=== PATIENT | male | born 1965 | race Caucasian/White ===

== ENCOUNTER 2018-03-04 15:51 | Emergency (ER) | payer MEDICAID ==
[~2018-03-04] VITALS: Ht 177.8 cm; Wt 86.4 kg
[~2018-03-04 15:51] MED LIST: COL100C PO; LACT1CAP26 PO; PER10325T PO
[2018-03-04 15:57] VITALS: BP 126/87
[2018-03-04] MEDS ORDERED: PENI500T2 PO (17:17)
[2018-03-04] MEDS ORDERED: HYDROcodone/acetaminophen 10/325mg tab PO ONE (17:20)
== END 2018-03-04 17:29 | disposition home or self-care (01) ==
LOC: ER 15:53
DX: K02.9 Dental caries, unspecified (principal); Z91.018 Allergy to other foods; Z79.899 Other long term (current) drug therapy; Z59.0 Homelessness; Z56.0 Unemployment, unspecified; Z86.19 Personal history of other infectious and parasitic diseases
CPT/HCPCS: 99283

== ENCOUNTER 2018-03-05 11:27 | Emergency (ER) | payer MEDICAID ==
[~2018-03-05] VITALS: Ht 177.8 cm; Wt 70.0 kg
[~2018-03-05 11:27] MED LIST changes: +PENI500T2 PO
[2018-03-05 11:35] VITALS: BP 109/73
== END 2018-03-05 14:29 | disposition left against medical advice (07) ==
LOC: ER 11:28
DX: T78.40XA Allergy, unspecified, initial encounter (principal); Z53.21 Procedure and treatment not carried out due to patient leaving prior to being seen by health care provider; Y92.9 Unspecified place or not applicable
CPT/HCPCS: 93005; 99281

== ENCOUNTER 2018-10-29 20:15 | Emergency (ER) | payer MEDICAID ==
[~2018-10-29] VITALS: Ht 177.8 cm; Wt 85.0 kg
[~2018-10-29 20:15] MED LIST changes: -PENI500T2 PO
[2018-10-29] MEDS ORDERED: meperidine/PF 50mg/ml syringe IV ONE (20:25)
[2018-10-29] MEDS ORDERED: ketorolac tromethamine 15mg/ml inj. IV ONE (20:25)
[2018-10-29] MEDS ORDERED: cyclobenzaprine 10mg tablet PO ONE (20:40)
[2018-10-29 20:49] LABS: ALANINE AMINOTRANSFERASE 119 U/L (12-78); ALBUMIN/GLOBULIN RATIO 1.1 (1.1-1.5); ALKALINE PHOSPHATASE 99 IU/L (46-116); ANION GAP 11 (8-16); ASPARTATE AMINO TRANSFERASE 49 U/L (10-37); BILIRUBIN,TOTAL 0.6 MG/DL (0.1-1.0); BLOOD UREA NITROGEN 11 MG/DL (7-18); CALCIUM 8.8 MG/DL (8.5-10.1); CHLORIDE 108 MMOL/L (99-107); GLUCOSE 113 MG/DL (70-104); SODIUM 141 MMOL/L (135-145); TOTAL CARBON DIOXIDE 22.1 MMOL/L (24-32); TOTAL PROTEIN 7.7 G/DL (6.4-8.2); eGFR 71 ML/MIN
[2018-10-29 20:50] LABS: BASOPHILS % (AUTO) 0.5 % (0-1); EOSINOPHILS # (AUTO) 0.4 X10'3 (0-0.9); EOSINOPHILS % (AUTO) 4.4 % (0-6); HEMATOCRIT 43.1 % (42.0-52.0); HEMOGLOBIN 14.9 g/dl (14.0-17.9); LYMPHOCYTES % (AUTO) 32.2 % (21-51); MEAN CORPUSCULAR HEMOGLOBIN 31.3 PG (27.0-31.0); MEAN CORPUSCULAR HGB CONC 34.6 g/dL (33.0-36.5); MEAN CORPUSCULAR VOLUME 90.5 FL (78-98); MEAN PLATELET VOLUME 9.3 FL (7.4-10.4); MONOCYTES # (AUTO) 0.7 X10'3 (0-0.9); MONOCYTES % (AUTO) 7.5 % (2-12); NEUTROPHILS # (AUTO) 5.1 X10'3 (1.8-7.7); NEUTROPHILS % (AUTO) 55.4 % (42-75); PLATELET COUNT 207 X10'3 (140-440); RED BLOOD COUNT 4.77 X10'6 (4.70-6.10); RED CELL DISTRIBUTION WIDTH 12.5 % (11.5-14.5); WHITE BLOOD COUNT 9.2 X10'3 (4.5-11.0)
[2018-10-29 20:51] LABS: PARTIAL THROMBOPLASTIN TIME 28 SECONDS (22-32)
[2018-10-29 20:52] LABS: AMYLASE 51 U/L (25-115); CREATINE KINASE 279 U/L (39-308); LIPASE 68 U/L (73-393); TROPONIN I < 0.04 NG/ML (0.0-0.05)
[2018-10-29] MEDS ORDERED: HYDROcodone/acetaminophen 10/325mg tab PO ONE (21:40)
[2018-10-29] MEDS ORDERED: CYCL-1 PO (21:41)
[2018-10-29] MEDS ORDERED: HYDR-4353 PO (21:41)
[2018-10-29] MEDS ORDERED: NAPR-56 PO (21:41)
[2018-10-29 21:56] VITALS: BP 111/70
== END 2018-10-29 22:49 | disposition home or self-care (01) ==
LOC: ER 20:15
DX: R07.89 Other chest pain (principal); R06.02 Shortness of breath; R61 Generalized hyperhidrosis; I10 Essential (primary) hypertension; F17.200 Nicotine dependence, unspecified, uncomplicated; F10.99 Alcohol use, unspecified with unspecified alcohol-induced disorder; Z86.19 Personal history of other infectious and parasitic diseases; Z98.890 Other specified postprocedural states; Z56.0 Unemployment, unspecified; Z59.0 Homelessness; Z88.0 Allergy status to penicillin; Z91.018 Allergy to other foods; Z79.899 Other long term (current) drug therapy; Y90.9 Presence of alcohol in blood, level not specified
CPT/HCPCS: 36415; 71045; 80053; 82150; 82550; 83690; 84484; 85025; 85610; 85730; 93005; 96374; 96375; 99284; J1885; J2175

== ENCOUNTER 2019-11-10 16:05 | Emergency (ER) | payer MEDICAID ==
[~2019-11-10] VITALS: Ht 177.8 cm; Wt 91.8 kg
[~2019-11-10 16:05] MED LIST changes: +CYCL-1 PO
[2019-11-10 16:34] LABS: BASOPHILS # (AUTO) 0.1 X10'3 (0-0.2); BASOPHILS % (AUTO) 0.9 % (0-1); EOSINOPHILS # (AUTO) 0.2 X10'3 (0-0.9); EOSINOPHILS % (AUTO) 2.7 % (0-6); HEMATOCRIT 46.1 % (42.0-52.0); HEMOGLOBIN 15.8 g/dl (14.0-17.9); LYMPHOCYTES # (AUTO) 1.7 X10'3 (1.1-4.8); LYMPHOCYTES % (AUTO) 19.4 % (21-51); MEAN CORPUSCULAR HGB CONC 34.3 g/dL (33.0-36.5); MEAN CORPUSCULAR VOLUME 93.5 FL (78-98); MONOCYTES # (AUTO) 0.9 X10'3 (0-0.9); MONOCYTES % (AUTO) 9.7 % (2-12); NEUTROPHILS % (AUTO) 67.3 % (42-75); PLATELET COUNT 217 X10'3 (140-440); RED BLOOD COUNT 4.92 X10'6 (4.70-6.10); RED CELL DISTRIBUTION WIDTH 12.6 % (11.5-14.5); WHITE BLOOD COUNT 8.9 X10'3 (4.5-11.0)
[2019-11-10 16:54] LABS: ALANINE AMINOTRANSFERASE 375 U/L (12-78); ALBUMIN 3.7 G/DL (3.4-5.0); ALBUMIN/GLOBULIN RATIO 0.8 (1.1-1.5); ALKALINE PHOSPHATASE 117 IU/L (46-116); ANION GAP 8 (8-16); ASPARTATE AMINO TRANSFERASE 157 U/L (10-37); BILIRUBIN,TOTAL 0.3 MG/DL (0.1-1.0); BLOOD UREA NITROGEN 13 MG/DL (7-18); BUN/CREATININE RATIO 13.4 (5.4-32.0); CALCIUM 9.3 MG/DL (8.5-10.1); CHLORIDE 102 MMOL/L (99-107); CREATININE 0.97 MG/DL (0.60-1.10); GLUCOSE 187 MG/DL (70-104); POTASSIUM 4.1 MMOL/L (3.5-5.1); SODIUM 137 MMOL/L (135-145); TOTAL CARBON DIOXIDE 27.1 MMOL/L (24-32); TOTAL PROTEIN 8.2 G/DL (6.4-8.2); eGFR 81 ML/MIN
[2019-11-10] MEDS ORDERED: normal saline 1000ml 1,000 ML IV ONE (17:30)
[2019-11-10] MEDS ORDERED: ondansetron/PF 4mg/2ml inj IV ONE (17:30)
[2019-11-10] MEDS ORDERED: meclizine 12.5mg tablet PO ONE (17:45)
[2019-11-10] MEDS ORDERED: MECL-159 PO (18:45)
[2019-11-10] MEDS ORDERED: ONDA4TAB6 PO (18:45)
[2019-11-10 19:00] VITALS: BP 149/93
== END 2019-11-10 19:03 | disposition home or self-care (01) ==
LOC: ER 16:05
DX: R42 Dizziness and giddiness (principal); R11.2 Nausea with vomiting, unspecified; Z72.89 Other problems related to lifestyle; Z56.0 Unemployment, unspecified; Z59.0 Homelessness; Z91.018 Allergy to other foods; Z79.899 Other long term (current) drug therapy
CPT/HCPCS: 36415; 71045; 80053; 83880; 84484; 85025; 93005; 96374; 99285; J2405; J7030; J8597

== ENCOUNTER → 2020-06-04 | Emergency (ER) | payer MEDICAID ==
[~2020-06-04] VITALS: Ht 177.8 cm; Wt 86.7 kg
[~2020-06-04] MED LIST changes: +ALBU8HFA PO; +CLON0.3T PO; +HYDR-3972 PO; +MECL-159 PO; +OMEP-50 PO; +ONDA4TAB6 PO
[2020-06-04 15:56] VITALS: BP 156/101
== END | disposition left against medical advice (07) ==
LOC: ER 15:47
DX: R10.9 Unspecified abdominal pain (principal); R11.10 Vomiting, unspecified; Z53.21 Procedure and treatment not carried out due to patient leaving prior to being seen by health care provider

== ENCOUNTER 2020-06-07 18:37 | Inpatient (IN) | payer MEDICAID ==
[~2020-06-07] VITALS: Ht 177.8 cm; Wt 90.9 kg
[~2020-06-07 18:37] MED LIST changes: -ALBU8HFA PO; -CLON0.3T PO; -HYDR-3972 PO; -OMEP-50 PO
[2020-06-07 20:07] LABS: BASOPHILS % (AUTO) 0.3 % (0-1); EOSINOPHILS % (AUTO) 0.2 % (0-6); HEMATOCRIT 45.3 % (42.0-52.0); HEMOGLOBIN 15.3 g/dl (14.0-17.9); LYMPHOCYTES # (AUTO) 1.2 X10'3 (1.1-4.8); LYMPHOCYTES % (AUTO) 10.7 % (21-51); MEAN CORPUSCULAR HEMOGLOBIN 31.6 PG (27.0-31.0); MEAN CORPUSCULAR HGB CONC 33.8 g/dL (33.0-36.5); MEAN CORPUSCULAR VOLUME 93.5 FL (78-98); MEAN PLATELET VOLUME 10.4 FL (7.4-10.4); MONOCYTES % (AUTO) 9.1 % (2-12); NEUTROPHILS # (AUTO) 8.8 X10'3 (1.8-7.7); NEUTROPHILS % (AUTO) 79.7 % (42-75); PLATELET COUNT 151 X10'3 (140-440); RED BLOOD COUNT 4.85 X10'6 (4.70-6.10); WHITE BLOOD COUNT 11.1 X10'3 (4.5-11.0)
[2020-06-07 20:13] LABS: ALANINE AMINOTRANSFERASE 229 U/L (12-78); ALBUMIN 3.3 G/DL (3.4-5.0); ALBUMIN/GLOBULIN RATIO 0.7 (1.1-1.5); ALKALINE PHOSPHATASE 177 IU/L (46-116); ANION GAP 10 (8-16); ASPARTATE AMINO TRANSFERASE 127 U/L (10-37); BILIRUBIN,TOTAL 0.8 MG/DL (0.1-1.0); BLOOD UREA NITROGEN 26 MG/DL (7-18); BUN/CREATININE RATIO 16.6 (5.4-32.0); CALCIUM 9.8 MG/DL (8.5-10.1); CHLORIDE 89 MMOL/L (99-107); CREATININE 1.57 MG/DL (0.60-1.10); LIPASE 135 U/L (73-393); POTASSIUM 4.8 MMOL/L (3.5-5.1); SODIUM 126 MMOL/L (135-145); TOTAL CARBON DIOXIDE 27.1 MMOL/L (24-32); TOTAL PROTEIN 8.3 G/DL (6.4-8.2); eGFR 47 ML/MIN
[2020-06-07 20:41] LABS: GLUCOSE 772 MG/DL (70-104)
[2020-06-07] MEDS ORDERED: normal saline 1000ML IV soln IVB ONE ×2 (22:05→23:10)
[2020-06-07] MEDS ORDERED: insulin regular, human U-100 3ml vial - multi-dose IV ONE (22:15)
[2020-06-07 22:26] LABS: CLARITY,URINE CLEAR (Clear); COLOR,URINE STRAW (Yellow); GLUCOSE, URINE >=1000 mg/dl (Neg); KETONES,URINE TRACE mg/dl (Neg); LEUKOCYTE ESTERASE ,URINE NEGATIVE (Neg); NITRITES, URINE NEGATIVE (Neg); OCCULT BLOOD,URINE TRACE-INTACT (Neg); PROTEIN,URINE NEGATIVE (Neg); UROBILINOGEN,URINE 0.2 E.U/dL (0.2-1.0)
[2020-06-07] MEDS ORDERED: insulin regular, human 10 units/0.1 ml syringe IV ONE ×2 (22:30→23:15)
[2020-06-07] MEDS ORDERED: morphine 4 MG/ML inj SYRINge IV ONE (22:30)
[2020-06-07 22:32] LABS: UA COLLECTION TYPE VOIDED
[2020-06-07 22:33] LABS: BACTERIA,URINE 1+ /HPF (Neg); RBC,URINE 0-2 /HPF (0-2); SQUAMOUS EPITHELIAL CELL,UR NONE SEEN /LPF (FEW)
[2020-06-07 22:34] LABS: WBC CLUMPS,URINE FEW /HPF (NEGATIVE)
[2020-06-07] MEDS ORDERED: iohexol 300mg/ml 100ml inj. ONE (22:45)
[2020-06-07 23:00] LABS: MAGNESIUM 1.8 MG/DL (1.5-2.4); PHOSPHORUS 4.2 MG/DL (2.3-4.5)
--- NOTE | 2020-06-08 01:07 | NUR ---
, ELI, AT BEDSIDE, . PT UP TO BR TO VOID AND POSSIBLEY TO HAVE BM. REPORTS HE IS PASSING GAS. STATES HE TOOK MANY BOWL MEDS WTH NO RELIEF. FEELS DISTENDED. CURRENT VSS.
[2020-06-08] MEDS ORDERED: HYDR-3972 PO (01:21)
[2020-06-08] MEDS ORDERED: CLON0.3T PO (01:21)
[2020-06-08] MEDS ORDERED: OMEP-50 PO (01:21)
[2020-06-08] MEDS ORDERED: ALBU8HFA PO (01:22)
[2020-06-08] MEDS ORDERED: CefTRIAXone/D5W-Rocephin 1gm 50 ML IV ONE (04:45)
[2020-06-08] MEDS ORDERED: magnesium hydroxide 30ml (MOM) UD suspension PO PRN (05:20)
[2020-06-08] MEDS ORDERED: acetaminophen 325mg tablet PO PRN (05:20)
[2020-06-08] MEDS ORDERED: ondansetron/PF 4mg/2ml inj IV PRN (05:20)
[2020-06-08] MEDS ORDERED: mag hydrox/Alum hydrox/simeth 30ml oral suspension PO PRN (05:20)
[2020-06-08] MEDS ORDERED: potassium Cl 20 mEq SR tablet PO PRN ×2 (05:20)
[2020-06-08] MEDS ORDERED: potassium Cl 40MEQ/1/2NS 520ml 520 ML IV PRN ×2 (05:20)
[2020-06-08] MEDS ORDERED: dextrose 50%-water 50ml dispensing syringe IV PRN ×2 (05:25)
[2020-06-08] MEDS ORDERED: insulin glargine (Lantus) pen - multi-dose SQ ONE (05:25)
[2020-06-08] MEDS ORDERED: glucagon, human recombinant 1mg kit SUBCUT PRN (05:25)
[2020-06-08] MEDS ORDERED: dextrose ORAL solution 15 GM/59 ML bottle PO PRN ×2 (05:25)
[2020-06-08] MEDS ORDERED: MESSAGE TO PHARMACY PO ONE (05:25)
[2020-06-08] MEDS: normal saline 1000ml 1,000 ML IV SCH ×4 (05:27→19:05)
[2020-06-08] MEDS ORDERED: albuterol 2.5 MG/3 ML nebule NEB PRN (05:35)
[2020-06-08 05:51] LABS: HEMOGLOBIN A1C 10.3 % (4.5-6.2)
[2020-06-08] MEDS: pantoprazole 40mg Tablet.DR PO SCH (06:51)
[2020-06-08] MEDS: HYDROcodone/acetaminophen 10/325mg tab PO PRN ×2 (06:56→17:36)
[2020-06-08] MEDS: K and/or MAG REPLACEMENT MC SCH ×2 (08:00→20:00)
[2020-06-08] MEDS: docusate sod 100mg capsule PO SCH ×2 (08:41→19:08)
[2020-06-08] MEDS: lisinopril 5mg tablet PO SCH (08:42)
[2020-06-08] MEDS: heparin, porcine 5000 units/ml vial SQ SCH ×2 (08:43→19:08)
[2020-06-08] MEDS: insulin Lispro (HumaLOG) vial - multi-dose SQ SCH ×3 (08:45→19:12)
--- NOTE | 2020-06-08 10:48 | NUR ---
DISCUSSED PT'S USE OF OMEPRAZOLE AND CLONIDINE W/ HIM THEN SHARED W/ PHARMACY THEY HAD REQUESTED.
[2020-06-08] MEDS ORDERED: DOCU100C40 PO (14:24)
[2020-06-08 15:00] VITALS: BP 114/79
--- NOTE | 2020-06-08 15:10 | NUR ---
Patient arrived and oriented to unit, monitor set up, tele on, mrsa, VS 99.5,HR 73, 97%RA, RR16, 114/79
[2020-06-08 18:00] VITALS: BP 105/75
--- NOTE | 2020-06-08 18:06 | NUR ---
Problems reprioritized. Patient report given, questions answered & plan of care reviewed with Socorro SAMUEL.
--- NOTE | 2020-06-08 18:15 | NUR ---
Patient in room MED 311. I have received report from Pablo SAMUEL and had the opportunity to ask questions and assume patient care.
[2020-06-08] MEDS ORDERED: LORazepam 2 mg/ml vial IV PRN (18:30)
[2020-06-08] MEDS ORDERED: LORazepam 1 MG tablet PO PRN (18:30)
[2020-06-08] MEDS: insulin glargine (Lantus) pen - multi-dose SQ SCH (21:21)
[2020-06-08 22:00] VITALS: BP 106/64
[2020-06-09] MEDS: normal saline 1000ml 1,000 ML IV SCH ×4 (01:20→17:34)
[2020-06-09] MEDS: HYDROcodone/acetaminophen 10/325mg tab PO PRN ×2 (01:37→19:21)
[2020-06-09] MEDS: CefTRIAXone/D5W-Rocephin 1gm 50 ML IV SCH (05:18)
[2020-06-09 06:00] VITALS: BP 95/60
[2020-06-09 06:14] LABS: HEMOGLOBIN 12.9 g/dl (14.0-17.9)
--- NOTE | 2020-06-09 06:15 | NUR ---
Patient in room MED 311. I have received report from LIZZIE Miranda and had the opportunity to ask questions and assume patient care.
[2020-06-09 06:18] LABS: BASOPHILS % (AUTO) 0.5 % (0-1); EOSINOPHILS # (AUTO) 0.2 X10'3 (0-0.9); EOSINOPHILS % (AUTO) 2.6 % (0-6); HEMATOCRIT 36.7 % (42.0-52.0); LYMPHOCYTES # (AUTO) 1.7 X10'3 (1.1-4.8); LYMPHOCYTES % (AUTO) 23.2 % (21-51); MEAN CORPUSCULAR HEMOGLOBIN 31.9 PG (27.0-31.0); MEAN CORPUSCULAR VOLUME 91.1 FL (78-98); MONOCYTES # (AUTO) 0.8 X10'3 (0-0.9); MONOCYTES % (AUTO) 10.9 % (2-12); NEUTROPHILS # (AUTO) 4.6 X10'3 (1.8-7.7); NEUTROPHILS % (AUTO) 62.8 % (42-75); PLATELET COUNT 115 X10'3 (140-440); RED BLOOD COUNT 4.03 X10'6 (4.70-6.10); RED CELL DISTRIBUTION WIDTH 11.7 % (11.5-14.5); WHITE BLOOD COUNT 7.3 X10'3 (4.5-11.0)
--- NOTE | 2020-06-09 06:18 | NUR ---
Problems reprioritized. Patient report given, questions answered & plan of care reviewed with Leela SAMUEL.
[2020-06-09 06:26] LABS: ALANINE AMINOTRANSFERASE 127 U/L (12-78); ALBUMIN 2.1 G/DL (3.4-5.0); ALBUMIN/GLOBULIN RATIO 0.6 (1.1-1.5); ALKALINE PHOSPHATASE 101 IU/L (46-116); ANION GAP 6 (8-16); ASPARTATE AMINO TRANSFERASE 79 U/L (10-37); BILIRUBIN,TOTAL 0.4 MG/DL (0.1-1.0); BLOOD UREA NITROGEN 14 MG/DL (7-18); BUN/CREATININE RATIO 13.7 (5.4-32.0); CHLORIDE 103 MMOL/L (99-107); CREATININE 1.02 MG/DL (0.60-1.10); GLUCOSE 219 MG/DL (70-104); LIPASE 556 U/L (73-393); POTASSIUM 3.8 MMOL/L (3.5-5.1); SODIUM 135 MMOL/L (135-145); TOTAL CARBON DIOXIDE 26.2 MMOL/L (24-32); TOTAL PROTEIN 5.9 G/DL (6.4-8.2); eGFR 77 ML/MIN
[2020-06-09 06:40] LABS: CALCIUM 7.7 MG/DL (8.5-10.1)
[2020-06-09] MEDS: lisinopril 5mg tablet PO SCH (07:12)
[2020-06-09] MEDS: docusate sod 100mg capsule PO SCH ×2 (07:12→19:21)
[2020-06-09] MEDS: pantoprazole 40mg Tablet.DR PO SCH ×3 (07:12→19:22)
[2020-06-09] MEDS: heparin, porcine 5000 units/ml vial SQ SCH ×2 (07:13→19:23)
[2020-06-09] MEDS: nicotine 14mg patch - 24hr TD SCH (07:18)
[2020-06-09] MEDS: K and/or MAG REPLACEMENT MC SCH ×2 (07:28→10:04)
[2020-06-09 08:30] VITALS: BP 115/63
[2020-06-09] MEDS: insulin Lispro (HumaLOG) vial - multi-dose SQ SCH ×3 (09:07→19:20)
[2020-06-09 11:00] VITALS: BP 124/60
[2020-06-09] MEDS ORDERED: bisacodyl 10mg suppository rectal RC ONE (11:05)
[2020-06-09] MEDS ORDERED: morphine 2 MG/ML inj. syringe IV PRN ×2 (11:40)
--- NOTE | 2020-06-09 13:48 | NUR ---
DM consult: Pt presented with c/o polydipsia and polyuria x 9 days, initial BG level 772 mg/dL. Pt newly dx with T2DM this admit. Pt seen at bedside with SO present for written DM education with thorough verbal review. Pt denies any prior knowledge of DM management. RD discussed foods that contain carbs, consistent carb intake, reading the nutrition facts label, what to do when hypoglycemic, the role of exercise, what to do on sick days, and how to find additional resources. Pt and SO very involved in education and both able to provide teach-back method. Noted that pt appears to consume a lot of soda and sweets, RD assisted pt in making achievable goals. RD encouraged pt to f/u with PCP regarding new DM dx and to check BG levels and take medications per rx. Pt verbalized understanding. All questions were answered at this time. RD contact information provided and pt/SO encouraged to reach out for any further questions. Pt endorses a good appetite and states he is still hungry following meals, currently with 75-100% PO intake on CHO controlled diet. Pt agrees to double protein TID. Pt reports only food allergy is to avocado (already in EMR) and states he dislikes mushrooms. Pt denies difficulty chewing/swallowing. LBM 3/10, receiving routine and PRN bowel care. Pt agrees to power pudding with dinner tonight. All food preferences were d/w dietary. Will continue to follow. Recommendations: 1) Continue CHO controlled diet 2) Double eggs WB, double meat BIDLD 3) Routine bowel care 4) Scaled weights per rx Addendum: 06/09/20 at [address] Amended: Links added.
[2020-06-09 14:00] VITALS: BP 118/60
[2020-06-09] MEDS ORDERED: bisacodyl 10mg suppository rectal RC PRN (15:40)
--- NOTE | 2020-06-09 17:48 | NUR ---
PAGER ID: [phone] MESSAGE: Patient: Andre Restrepo Room 311A - Pt C/O pain/burning while urinating and frequency. Want UA? Can we advance diet from clear liquid to CC. Thanks, Zita [phone]
[2020-06-09 18:00] VITALS: BP 115/55
--- NOTE | 2020-06-09 18:13 | NUR ---
Problems reprioritized. Patient report given, questions answered & plan of care reviewed with LIZZIE Miranda.
--- NOTE | 2020-06-09 18:13 | NUR ---
Patient in room MED 311. I have received report from Zita SAMUEL and had the opportunity to ask questions and assume patient care.
[2020-06-09] MEDS: lactobacillus rhamnosus 10,000 MMU CELLS/CAPSULE PO SCH (19:21)
[2020-06-09] MEDS: calcium acetate 667mg (PhosLO) capsule PO SCH (19:22)
[2020-06-09] MEDS: insulin glargine (Lantus) pen - multi-dose SQ SCH (21:12)
[2020-06-09 22:00] VITALS: BP 118/68
[2020-06-10] MEDS: normal saline 1000ml 1,000 ML IV SCH ×2 (00:02→08:55)
[2020-06-10 02:00] VITALS: BP 126/84
[2020-06-10] MEDS: HYDROcodone/acetaminophen 10/325mg tab PO PRN ×2 (02:47→08:50)
[2020-06-10] MEDS: CefTRIAXone/D5W-Rocephin 1gm 50 ML IV SCH (04:59)
[2020-06-10 06:00] VITALS: BP 109/73
[2020-06-10 06:17] LABS: BASOPHILS % (AUTO) 0.4 % (0-1); EOSINOPHILS # (AUTO) 0.2 X10'3 (0-0.9); EOSINOPHILS % (AUTO) 3.6 % (0-6); HEMATOCRIT 37.1 % (42.0-52.0); HEMOGLOBIN 12.8 g/dl (14.0-17.9); LYMPHOCYTES # (AUTO) 1.4 X10'3 (1.1-4.8); LYMPHOCYTES % (AUTO) 23.6 % (21-51); MEAN CORPUSCULAR HEMOGLOBIN 31.7 PG (27.0-31.0); MEAN CORPUSCULAR HGB CONC 34.4 g/dL (33.0-36.5); MEAN CORPUSCULAR VOLUME 92.2 FL (78-98); MEAN PLATELET VOLUME 10.6 FL (7.4-10.4); MONOCYTES # (AUTO) 0.7 X10'3 (0-0.9); MONOCYTES % (AUTO) 12.4 % (2-12); NEUTROPHILS # (AUTO) 3.5 X10'3 (1.8-7.7); PLATELET COUNT 116 X10'3 (140-440); RED BLOOD COUNT 4.02 X10'6 (4.70-6.10); RED CELL DISTRIBUTION WIDTH 11.7 % (11.5-14.5); WHITE BLOOD COUNT 5.8 X10'3 (4.5-11.0)
[2020-06-10 06:19] LABS: ALANINE AMINOTRANSFERASE 119 U/L (12-78); ALBUMIN 2.1 G/DL (3.4-5.0); ALBUMIN/GLOBULIN RATIO 0.6 (1.1-1.5); ALKALINE PHOSPHATASE 104 IU/L (46-116); ANION GAP 6 (8-16); ASPARTATE AMINO TRANSFERASE 89 U/L (10-37); BILIRUBIN,TOTAL 0.3 MG/DL (0.1-1.0); BLOOD UREA NITROGEN 9 MG/DL (7-18); CALCIUM 8.1 MG/DL (8.5-10.1); CHLORIDE 109 MMOL/L (99-107); GLUCOSE 152 MG/DL (70-104); LIPASE 423 U/L (73-393); POTASSIUM 3.6 MMOL/L (3.5-5.1); SODIUM 142 MMOL/L (135-145); TOTAL CARBON DIOXIDE 26.6 MMOL/L (24-32); TOTAL PROTEIN 5.7 G/DL (6.4-8.2); eGFR 89 ML/MIN
[2020-06-10] MEDS: docusate sod 100mg capsule PO SCH (08:00)
[2020-06-10] MEDS: nicotine 14mg patch - 24hr TD SCH (08:00)
[2020-06-10] MEDS: K and/or MAG REPLACEMENT MC SCH (08:19)
[2020-06-10] MEDS: insulin Lispro (HumaLOG) vial - multi-dose SQ SCH ×2 (08:45→13:25)
[2020-06-10] MEDS: lactobacillus rhamnosus 10,000 MMU CELLS/CAPSULE PO SCH (08:47)
[2020-06-10] MEDS: heparin, porcine 5000 units/ml vial SQ SCH (08:47)
[2020-06-10] MEDS: calcium acetate 667mg (PhosLO) capsule PO SCH (08:47)
[2020-06-10] MEDS: pantoprazole 40mg Tablet.DR PO SCH (08:47)
[2020-06-10] MEDS: lisinopril 5mg tablet PO SCH (08:49)
[2020-06-10 10:00] VITALS: BP 113/77
[2020-06-10] MEDS ORDERED: NICO-631 TD (11:53)
[2020-06-10] MEDS ORDERED: LISI-642 PO (11:53)
[2020-06-10] MEDS ORDERED: METF-950 PO (11:57)
[2020-06-10] MEDS ORDERED: EMPA10TA PO (11:57)
[2020-06-10] MEDS ORDERED: MULT-1219 PO (11:58)
[2020-06-10] MEDS ORDERED: FOLI0.4T6 PO (11:58)
[2020-06-10] MEDS ORDERED: CIPR-259 PO (12:01)
--- NOTE | 2020-06-10 14:38 | NUR ---
Patient discharged in stable condition with all belongings at side. IV taken out and cannula intact. Patient wheeled out of hospital with at side. Prescriptions called in to [facility] pharmacy on [address].
== END 2020-06-10 14:09 | disposition home or self-care (01) | DRG 463 ==
LOC: ER 18:38 → ED HOLD 06-08 05:19 → UNDOADMIN 06-08 05:19 → ED HOLD 06-08 14:49 → MED 3N 06-08 14:49 → UNDODISIN 06-10 14:09
PROVIDERS: ADMIT Internal Medicine; ATTEND Family Medicine
PROC: BW211ZZ Computerized Tomography (CT Scan) of Abdomen and Pelvis using Low Osmolar Contrast (ICD-10-PCS; principal; 2020-06-07)
DX: N39.0 Urinary tract infection, site not specified (principal); E11.65 Type 2 diabetes mellitus with hyperglycemia; B19.20 Unspecified viral hepatitis C without hepatic coma; K85.90 Acute pancreatitis without necrosis or infection, unspecified; B96.20 Unspecified Escherichia coli [E. coli] as the cause of diseases classified elsewhere; D69.59 Other secondary thrombocytopenia; E11.22 Type 2 diabetes mellitus with diabetic chronic kidney disease; E86.0 Dehydration; R74.8 Abnormal levels of other serum enzymes; M25.551 Pain in right hip; E87.1 Hypo-osmolality and hyponatremia; F10.20 Alcohol dependence, uncomplicated; F17.210 Nicotine dependence, cigarettes, uncomplicated; G89.29 Other chronic pain; I12.9 Hypertensive chronic kidney disease with stage 1 through stage 4 chronic kidney disease, or unspecified chronic kidney disease; K59.00 Constipation, unspecified; N18.30 Chronic kidney disease, stage 3 unspecified; Z79.899 Other long term (current) drug therapy; Z71.6 Tobacco abuse counseling
CPT/HCPCS: 36415; 74177; 80053; 81001; 82948; 83036; 83690; 83735; 83930; 84100; 84443; 85025; 87077; 87081; 87088; 87186; 94640; 94760; 96361; 96374; 96375; 96376; 99285; G0378; J0696; J1644; J1815; J2270; J7030; Q9967

== ENCOUNTER 2020-06-27 05:19 | Emergency (ER) | payer MEDICAID ==
[~2020-06-27] VITALS: Ht 177.8 cm; Wt 70.0 kg
[~2020-06-27 05:19] MED LIST changes: +ALBU8HFA PO; +CLON0.3T PO; -COL100C PO; -CYCL-1 PO; +DOCU100C40 PO; +EMPA10TA PO; +FOLI0.4T6 PO; +HYDR-3972 PO; -LACT1CAP26 PO; +LISI-642 PO; -MECL-159 PO; +METF-950 PO; +MULT-1219 PO; +NICO-631 TD; +OMEP-50 PO; -ONDA4TAB6 PO; -PER10325T PO
[2020-06-27] MEDS ORDERED: normal saline 1000ML IV soln IVB STA (05:26)
[2020-06-27] MEDS ORDERED: tranexamic acid 100mg/ml inj. IV ONE (05:30)
[2020-06-27] MEDS ORDERED: epiNEPHrine 1 mg/ml inj SQ ONE (05:30)
[2020-06-27] MEDS ORDERED: dexamethasone sod phosphate 10mg/ml inj IV ONE (05:30)
[2020-06-27] MEDS ORDERED: famotidine/PF 10 mg/ml inj IV ONE (05:30)
[2020-06-27] MEDS ORDERED: diphenhydrAMINE 50 mg/ml inj IV ONE (05:30)
[2020-06-27] MEDS ORDERED: tranexamic acid 1gm/0.7% sal. 100 ML IV ONE (05:40)
[2020-06-27 06:01] VITALS: BP 149/92
[2020-06-27] MEDS ORDERED: triamcinolone acetonide 40mg/ml inj IM ONE (06:15)
[2020-06-27] MEDS ORDERED: FAMO-128 PO (07:31)
[2020-06-27] MEDS ORDERED: insulin regular, human 10 units/0.1 ml syringe SQ ONE (07:35)
[2020-06-27] MEDS ORDERED: insulin regular, human U-100 3ml vial - multi-dose SQ ONE (07:35)
== END 2020-06-27 08:29 | disposition home or self-care (01) ==
LOC: ER 05:19
DX: T78.40XA Allergy, unspecified, initial encounter (principal); E11.65 Type 2 diabetes mellitus with hyperglycemia; K13.0 Diseases of lips; Z86.19 Personal history of other infectious and parasitic diseases; Z72.89 Other problems related to lifestyle; Z98.890 Other specified postprocedural states; Z56.0 Unemployment, unspecified; Z91.018 Allergy to other foods; Z79.899 Other long term (current) drug therapy; X58.XXXA Exposure to other specified factors, initial encounter
CPT/HCPCS: 82948; 96365; 96372; 96375; 99284; J0171; J1100; J1200; J3301; J3490; J7030; 96361; J1815

== ENCOUNTER 2020-06-30 15:13 | Emergency (ER) | payer MEDICAID ==
[~2020-06-30] VITALS: Ht 177.8 cm; Wt 90.9 kg
[~2020-06-30 15:13] MED LIST changes: +FAMO-128 PO
[2020-06-30] MEDS ORDERED: LIDOcaine 1% W/epiNEPHrine 1:200,000 10ml vial IJ ONE (17:05)
[2020-06-30] MEDS ORDERED: CEPH-585 PO (18:04)
[2020-06-30] MEDS ORDERED: DOXY-1 PO (18:04)
[2020-06-30 18:19] VITALS: BP 127/76
== END 2020-06-30 18:20 | disposition home or self-care (01) ==
LOC: ER 15:14
DX: L02.214 Cutaneous abscess of groin (principal); I10 Essential (primary) hypertension; E11.9 Type 2 diabetes mellitus without complications; Z86.19 Personal history of other infectious and parasitic diseases; Z72.89 Other problems related to lifestyle; Z98.890 Other specified postprocedural states; Z56.0 Unemployment, unspecified; Z91.018 Allergy to other foods; Z79.899 Other long term (current) drug therapy; Z79.84 Long term (current) use of oral hypoglycemic drugs
CPT/HCPCS: 10060; 99283

== ENCOUNTER 2020-08-18 04:06 | Emergency (ER) | payer MEDICAID ==
[~2020-08-18] VITALS: Ht 177.8 cm; Wt 85.0 kg
[~2020-08-18 04:06] MED LIST changes: -FOLI0.4T6 PO; -METF-950 PO
[2020-08-18 04:48] LABS: BASOPHILS # (AUTO) 0.1 X10'3 (0-0.2); BASOPHILS % (AUTO) 1.1 % (0-1); EOSINOPHILS # (AUTO) 0.2 X10'3 (0-0.9); EOSINOPHILS % (AUTO) 3.1 % (0-6); HEMATOCRIT 40.5 % (42.0-52.0); HEMOGLOBIN 14.2 g/dl (14.0-17.9); LYMPHOCYTES % (AUTO) 26.9 % (21-51); MEAN CORPUSCULAR HGB CONC 35.2 g/dL (33.0-36.5); MEAN CORPUSCULAR VOLUME 90.9 FL (78-98); MONOCYTES # (AUTO) 0.5 X10'3 (0-0.9); MONOCYTES % (AUTO) 7.1 % (2-12); NEUTROPHILS # (AUTO) 4.7 X10'3 (1.8-7.7); NEUTROPHILS % (AUTO) 61.8 % (42-75); PLATELET COUNT 167 X10'3 (140-440); RED BLOOD COUNT 4.45 X10'6 (4.70-6.10); RED CELL DISTRIBUTION WIDTH 12.4 % (11.5-14.5); WHITE BLOOD COUNT 7.6 X10'3 (4.5-11.0)
[2020-08-18 04:54] LABS: ALANINE AMINOTRANSFERASE 106 U/L (12-78); ALBUMIN 3.3 G/DL (3.4-5.0); ALBUMIN/GLOBULIN RATIO 0.9 (1.1-1.5); ALKALINE PHOSPHATASE 103 IU/L (46-116); ANION GAP 5 (8-16); ASPARTATE AMINO TRANSFERASE 55 U/L (10-37); BILIRUBIN,TOTAL 0.5 MG/DL (0.1-1.0); BLOOD UREA NITROGEN 13 MG/DL (7-18); CALCIUM 8.5 MG/DL (8.5-10.1); CHLORIDE 100 MMOL/L (99-107); CREATININE 1.08 MG/DL (0.60-1.10); GLUCOSE 371 MG/DL (70-104); POTASSIUM 3.5 MMOL/L (3.5-5.1); SODIUM 135 MMOL/L (135-145); TOTAL CARBON DIOXIDE 29.9 MMOL/L (24-32); TOTAL PROTEIN 6.9 G/DL (6.4-8.2); eGFR 72 ML/MIN
[2020-08-18 04:58] LABS: TROPONIN I < 0.04 NG/ML (0.0-0.05)
[2020-08-18] MEDS ORDERED: SULF1TAB49 PO (06:21)
[2020-08-18 07:24] VITALS: BP 148/98
== END 2020-08-18 07:25 | disposition home or self-care (01) ==
LOC: ER 04:06
DX: L03.811 Cellulitis of head [any part, except face] (principal); E11.65 Type 2 diabetes mellitus with hyperglycemia; I10 Essential (primary) hypertension; Z86.14 Personal history of Methicillin resistant Staphylococcus aureus infection; Z86.19 Personal history of other infectious and parasitic diseases; Z72.89 Other problems related to lifestyle; Z56.0 Unemployment, unspecified; Z98.890 Other specified postprocedural states; Z91.018 Allergy to other foods; Z79.899 Other long term (current) drug therapy
CPT/HCPCS: 36415; 80053; 82948; 84484; 85025; 93005; 99284

== ENCOUNTER 2020-11-03 15:41 | Emergency (ER) | payer MEDICAID ==
[~2020-11-03] VITALS: Ht 177.8 cm; Wt 84.5 kg
[2020-11-03 15:56] VITALS: BP 136/82
== END 2020-11-03 20:52 | disposition left against medical advice (07) ==
LOC: ER 15:42
DX: R26.81 Unsteadiness on feet (principal); Z53.21 Procedure and treatment not carried out due to patient leaving prior to being seen by health care provider

== ENCOUNTER 2021-01-25 20:45 | Emergency (ER) | payer MEDICAID ==
[~2021-01-25] VITALS: Ht 175.3 cm; Wt 71.0 kg
[2021-01-25 22:11] LABS: BASOPHILS # (AUTO) 0.1 X10'3 (0-0.2); BASOPHILS % (AUTO) 0.4 % (0-1); EOSINOPHILS # (AUTO) 0.1 X10'3 (0-0.9); EOSINOPHILS % (AUTO) 0.7 % (0-6); HEMATOCRIT 44.9 % (42.0-52.0); HEMOGLOBIN 15.9 g/dl (14.0-17.9); LYMPHOCYTES # (AUTO) 0.7 X10'3 (1.1-4.8); LYMPHOCYTES % (AUTO) 4.7 % (21-51); MEAN CORPUSCULAR HEMOGLOBIN 31.1 PG (27.0-31.0); MEAN CORPUSCULAR HGB CONC 35.4 g/dL (33.0-36.5); MEAN CORPUSCULAR VOLUME 87.8 FL (78-98); MEAN PLATELET VOLUME 9.5 FL (7.4-10.4); MONOCYTES # (AUTO) 0.7 X10'3 (0-0.9); MONOCYTES % (AUTO) 4.5 % (2-12); NEUTROPHILS # (AUTO) 13.6 X10'3 (1.8-7.7); NEUTROPHILS % (AUTO) 89.7 % (42-75); PLATELET COUNT 231 X10'3 (140-440); RED BLOOD COUNT 5.11 X10'6 (4.70-6.10); RED CELL DISTRIBUTION WIDTH 12.5 % (11.5-14.5); WHITE BLOOD COUNT 15.2 X10'3 (4.5-11.0)
[2021-01-25 22:23] LABS: ALANINE AMINOTRANSFERASE 178 U/L (12-78); ALBUMIN 3.3 G/DL (3.4-5.0); ALBUMIN/GLOBULIN RATIO 0.8 (1.1-1.5); ALKALINE PHOSPHATASE 109 IU/L (46-116); ANION GAP 11 (8-16); ASPARTATE AMINO TRANSFERASE 91 U/L (10-37); BILIRUBIN,TOTAL 0.7 MG/DL (0.1-1.0); BLOOD UREA NITROGEN 25 MG/DL (7-18); BUN/CREATININE RATIO 20.2 (5.4-32.0); CALCIUM 8.7 MG/DL (8.5-10.1); CHLORIDE 90 MMOL/L (99-107); CREATININE 1.24 MG/DL (0.60-1.10); LIPASE 116 U/L (73-393); POTASSIUM 4.2 MMOL/L (3.5-5.1); SODIUM 129 MMOL/L (135-145); TOTAL CARBON DIOXIDE 27.6 MMOL/L (24-32); TOTAL PROTEIN 7.4 G/DL (6.4-8.2); eGFR 61 ML/MIN
[2021-01-25 22:29] LABS: GLUCOSE 670 MG/DL (70-104)
[2021-01-25] MEDS ORDERED: normal saline 1000ml 1,000 ML IV ONE (23:05)
[2021-01-25] MEDS ORDERED: insulin regular, human 10 units/0.1 ml syringe SQ ONE (23:05)
[2021-01-25] MEDS ORDERED: normal saline 1000ml 3,000 ML IV ONE (23:16)
[2021-01-26 02:40] LABS: COLOR,URINE YELLOW (Yellow); PROTEIN,URINE NEGATIVE (Neg); UA COLLECTION TYPE CLN CATCH MIDSTREAM
[2021-01-26 02:41] LABS: GLUCOSE, URINE >=1000 mg/dl (Neg); KETONES,URINE 40 mg/dl (Neg); LEUKOCYTE ESTERASE ,URINE NEGATIVE (Neg); NITRITES, URINE NEGATIVE (Neg); OCCULT BLOOD,URINE NEGATIVE (Neg); UROBILINOGEN,URINE 0.2 E.U/dL (0.2-1.0)
[2021-01-26 02:58] LABS: CLARITY,URINE CLEAR (Clear)
--- NOTE | 2021-01-26 02:58 | NUR ---
CALLED TO CHECK ON PT. WILL BE RIDE HOME, CALL [phone] OR [phone] WHEN D/C READY
[2021-01-26 03:00] LABS: RBC,URINE NONE SEEN /HPF (0-2); WBC,URINE 0-4 /HPF (0-4)
[2021-01-26 03:01] LABS: BACTERIA,URINE NONE SEEN /HPF (Neg); MUCUS STRANDS NONE SEEN /LPF (Neg); SQUAMOUS EPITHELIAL CELL,UR FEW /LPF (FEW)
[2021-01-26] MEDS ORDERED: AMOX-117 PO (04:07)
[2021-01-26] MEDS ORDERED: amox tr/potassium clavulanate 875/125mg TAB PO ONE (04:10)
[2021-01-26 04:42] VITALS: BP 127/75
== END 2021-01-26 04:47 | disposition home or self-care (01) ==
LOC: ER 20:45
DX: K52.9 Noninfective gastroenteritis and colitis, unspecified (principal); R91.8 Other nonspecific abnormal finding of lung field; R05.9 Cough, unspecified; R10.84 Generalized abdominal pain; R06.02 Shortness of breath; R53.1 Weakness; I10 Essential (primary) hypertension; E11.9 Type 2 diabetes mellitus without complications; Z86.19 Personal history of other infectious and parasitic diseases; Z86.14 Personal history of Methicillin resistant Staphylococcus aureus infection; Z98.890 Other specified postprocedural states; Z72.89 Other problems related to lifestyle; Z56.0 Unemployment, unspecified; Z91.018 Allergy to other foods; Z79.2 Long term (current) use of antibiotics; Z79.899 Other long term (current) drug therapy
CPT/HCPCS: 36415; 71045; 74176; 80053; 81001; 82948; 83690; 85025; 96360; 96361; 96372; 99285; J1815; J7030

== ENCOUNTER 2021-02-24 00:36 | Emergency (ER) | payer MEDICAID ==
[~2021-02-24] VITALS: Ht 175.3 cm; Wt 62.3 kg
[2021-02-24] MEDS ORDERED: iohexol 300mg/ml 100ml inj. ONE (01:41)
[2021-02-24 02:37] LABS: BASOPHILS # (AUTO) 0.1 X10'3 (0-0.2); BASOPHILS % (AUTO) 0.9 % (0-1); EOSINOPHILS # (AUTO) 0.2 X10'3 (0-0.9); EOSINOPHILS % (AUTO) 1.9 % (0-6); HEMATOCRIT 43.4 % (42.0-52.0); LYMPHOCYTES # (AUTO) 1.8 X10'3 (1.1-4.8); LYMPHOCYTES % (AUTO) 22.2 % (21-51); MEAN CORPUSCULAR HEMOGLOBIN 31.7 PG (27.0-31.0); MEAN CORPUSCULAR HGB CONC 34.5 g/dL (33.0-36.5); MEAN CORPUSCULAR VOLUME 91.7 FL (78-98); MEAN PLATELET VOLUME 9.7 FL (7.4-10.4); MONOCYTES # (AUTO) 0.7 X10'3 (0-0.9); NEUTROPHILS # (AUTO) 5.5 X10'3 (1.8-7.7); PLATELET COUNT 194 X10'3 (140-440); RED BLOOD COUNT 4.73 X10'6 (4.70-6.10); RED CELL DISTRIBUTION WIDTH 12.5 % (11.5-14.5); WHITE BLOOD COUNT 8.2 X10'3 (4.5-11.0)
[2021-02-24 02:50] LABS: ANION GAP 7 (8-16); BLOOD UREA NITROGEN 20 MG/DL (7-18); BUN/CREATININE RATIO 14.7 (5.4-32.0); CALCIUM 8.7 MG/DL (8.5-10.1); CHLORIDE 87 MMOL/L (99-107); CREATININE 1.36 MG/DL (0.60-1.10); POTASSIUM 4.3 MMOL/L (3.5-5.1); SODIUM 121 MMOL/L (135-145); eGFR 55 ML/MIN
[2021-02-24] MEDS ORDERED: LIDOcaine 1% w/epiNEPHrine 1:200,000 30ml vial IJ ONE (03:00)
[2021-02-24] MEDS ORDERED: LIDOcaine 1% W/epiNEPHrine 1:200,000 10ml vial IJ ONE (03:00)
[2021-02-24 03:04] LABS: GLUCOSE 940 MG/DL (70-104)
[2021-02-24] MEDS ORDERED: insulin regular, human 10 units/0.1 ml syringe IV ONE (03:05)
[2021-02-24] MEDS ORDERED: normal saline 1000ml 1,000 ML IV ONE (03:05)
[2021-02-24] MEDS ORDERED: normal saline 1000ML IV soln IVB ONE (05:00)
[2021-02-24] MEDS ORDERED: clindamycin 150mg capsule PO ONE (05:10)
[2021-02-24] MEDS ORDERED: CLIN-143 PO (05:11)
[2021-02-24] MEDS ORDERED: HYDR-3965 PO (05:16)
[2021-02-24] MEDS ORDERED: HYDROcodone/acetaminophen 5mg/325mg tablet PO ONE (05:20)
[2021-02-24 05:26] VITALS: BP 119/87
== END 2021-02-24 05:31 | disposition home or self-care (01) ==
LOC: ER 00:36
DX: L02.811 Cutaneous abscess of head [any part, except face] (principal); E11.65 Type 2 diabetes mellitus with hyperglycemia; L02.11 Cutaneous abscess of neck; I10 Essential (primary) hypertension; E11.9 Type 2 diabetes mellitus without complications; Z86.14 Personal history of Methicillin resistant Staphylococcus aureus infection; Z86.16 Personal history of COVID-19; Z72.89 Other problems related to lifestyle; Z56.0 Unemployment, unspecified; Z98.890 Other specified postprocedural states; Z79.2 Long term (current) use of antibiotics; Z79.899 Other long term (current) drug therapy; Z91.018 Allergy to other foods
CPT/HCPCS: 10060; 36415; 70491; 80048; 82948; 85025; 96361; 96374; 99285; J1815; J7030; Q9967; 99284

== ENCOUNTER 2021-04-03 04:05 | Emergency (ER) | payer MEDICAID ==
[~2021-04-03] VITALS: Ht 172.7 cm; Wt 58.2 kg
[2021-04-03] MEDS ORDERED: morphine 4 MG/ML inj SYRINge IV ONE (04:20)
[2021-04-03] MEDS ORDERED: ondansetron/PF 4mg/2ml inj IV ONE (04:20)
[2021-04-03 04:35] LABS: BASOPHILS # (AUTO) 0.1 X10'3 (0-0.2); BASOPHILS % (AUTO) 1.3 % (0-1); EOSINOPHILS # (AUTO) 0.1 X10'3 (0-0.9); EOSINOPHILS % (AUTO) 1.4 % (0-6); HEMATOCRIT 43.3 % (42.0-52.0); HEMOGLOBIN 14.7 g/dl (14.0-17.9); LYMPHOCYTES # (AUTO) 2.2 X10'3 (1.1-4.8); LYMPHOCYTES % (AUTO) 27.5 % (21-51); MEAN CORPUSCULAR HEMOGLOBIN 31.3 PG (27.0-31.0); MEAN CORPUSCULAR VOLUME 92.1 FL (78-98); MEAN PLATELET VOLUME 9.6 FL (7.4-10.4); MONOCYTES # (AUTO) 0.7 X10'3 (0-0.9); MONOCYTES % (AUTO) 8.2 % (2-12); NEUTROPHILS # (AUTO) 4.9 X10'3 (1.8-7.7); NEUTROPHILS % (AUTO) 61.6 % (42-75); PLATELET COUNT 246 X10'3 (140-440); RED CELL DISTRIBUTION WIDTH 12.8 % (11.5-14.5)
[2021-04-03 04:46] LABS: ALANINE AMINOTRANSFERASE 144 U/L (12-78); ALBUMIN 3.8 G/DL (3.4-5.0); ALBUMIN/GLOBULIN RATIO 0.8 (1.1-1.5); ALKALINE PHOSPHATASE 128 IU/L (46-116); ANION GAP 14 (8-16); ASPARTATE AMINO TRANSFERASE 97 U/L (10-37); BILIRUBIN,DIRECT 0.3 MG/DL (0-0.3); BILIRUBIN,TOTAL 0.6 MG/DL (0.1-1.0); BLOOD UREA NITROGEN 23 MG/DL (7-18); BUN/CREATININE RATIO 17.7 (5.4-32.0); CALCIUM 9.8 MG/DL (8.5-10.1); CHLORIDE 92 MMOL/L (99-107); LIPASE 184 U/L (73-393); POTASSIUM 3.9 MMOL/L (3.5-5.1); SODIUM 130 MMOL/L (135-145); TOTAL CARBON DIOXIDE 23.7 MMOL/L (24-32); TOTAL PROTEIN 8.6 G/DL (6.4-8.2); eGFR 58 ML/MIN
[2021-04-03 04:54] LABS: GLUCOSE 822 MG/DL (70-104)
[2021-04-03 05:12] LABS: CLARITY,URINE CLEAR (Clear); GLUCOSE, URINE >=1000 mg/dl (Neg); KETONES,URINE NEGATIVE (Neg); LEUKOCYTE ESTERASE ,URINE NEGATIVE (Neg); NITRITES, URINE NEGATIVE (Neg); OCCULT BLOOD,URINE NEGATIVE (Neg); PROTEIN,URINE NEGATIVE (Neg); UROBILINOGEN,URINE 0.2 E.U/dL (0.2-1.0)
[2021-04-03 05:19] LABS: COLOR,URINE STRAW (Yellow); UA COLLECTION TYPE URINAL
[2021-04-03 05:21] LABS: BACTERIA,URINE NONE SEEN /HPF (Neg); RBC,URINE 0-2 /HPF (0-2); SQUAMOUS EPITHELIAL CELL,UR FEW /LPF (FEW); WBC,URINE 0-4 /HPF (0-4)
[2021-04-03] MEDS ORDERED: normal saline 1000ml 1,000 ML IV ONE ×2 (05:35)
[2021-04-03 06:06] VITALS: BP 134/90
== END 2021-04-03 06:07 | disposition home or self-care (01) ==
LOC: ER 04:06
DX: R10.84 Generalized abdominal pain (principal); R11.10 Vomiting, unspecified; R19.09 Other intra-abdominal and pelvic swelling, mass and lump; E11.65 Type 2 diabetes mellitus with hyperglycemia; I10 Essential (primary) hypertension; Z86.19 Personal history of other infectious and parasitic diseases; Z86.14 Personal history of Methicillin resistant Staphylococcus aureus infection; Z98.890 Other specified postprocedural states; Z72.89 Other problems related to lifestyle; Z56.0 Unemployment, unspecified; Z88.8 Allergy status to other drugs, medicaments and biological substances; Z79.899 Other long term (current) drug therapy
CPT/HCPCS: 36415; 76870; 80048; 80076; 81001; 83690; 85025; 93976; 96361; 96374; 96375; 99284; J2270; J2405; J7030

== ENCOUNTER 2021-05-20 15:34 | Emergency (ER) | payer MEDICAID ==
[~2021-05-20] VITALS: Ht 175.3 cm; Wt 61.5 kg
[~2021-05-20 15:34] MED LIST changes: -OMEP-50 PO; +OMEP20CA16 PO
[2021-05-20 15:45] VITALS: BP 113/71
[2021-05-20] MEDS ORDERED: CefTRIAXone 2gm/D5W 50ml BAG 50 ML IV ONE (15:50)
[2021-05-20] MEDS ORDERED: vancomycin/NS 1 GM ADD-VANTAGE 250 ML IV ONE (15:50)
[2021-05-20] MEDS ORDERED: normal saline 1000ML IV soln IV ONE (15:50)
[2021-05-20] MEDS ORDERED: iohexol 300mg/ml 100ml inj. ONE (16:05)
[2021-05-20 16:15] LABS: BASOPHILS % (AUTO) 0.5 % (0-1); EOSINOPHILS # (AUTO) 0.1 X10'3 (0-0.9); EOSINOPHILS % (AUTO) 0.9 % (0-6); HEMATOCRIT 38.3 % (42.0-52.0); HEMOGLOBIN 13.4 g/dl (14.0-17.9); LYMPHOCYTES # (AUTO) 1.5 X10'3 (1.1-4.8); LYMPHOCYTES % (AUTO) 15.1 % (21-51); MEAN CORPUSCULAR HEMOGLOBIN 31.4 PG (27.0-31.0); MEAN CORPUSCULAR HGB CONC 34.9 g/dL (33.0-36.5); MEAN CORPUSCULAR VOLUME 89.9 FL (78-98); MEAN PLATELET VOLUME 9.6 FL (7.4-10.4); MONOCYTES # (AUTO) 0.7 X10'3 (0-0.9); MONOCYTES % (AUTO) 7.1 % (2-12); NEUTROPHILS # (AUTO) 7.8 X10'3 (1.8-7.7); NEUTROPHILS % (AUTO) 76.4 % (42-75); PLATELET COUNT 181 X10'3 (140-440); RED BLOOD COUNT 4.26 X10'6 (4.70-6.10); WHITE BLOOD COUNT 10.2 X10'3 (4.5-11.0)
[2021-05-20 16:45] LABS: ALANINE AMINOTRANSFERASE 155 U/L (12-78); ALBUMIN 3.5 G/DL (3.4-5.0); ALBUMIN/GLOBULIN RATIO 0.9 (1.1-1.5); ALKALINE PHOSPHATASE 136 IU/L (46-116); ANION GAP 12 (8-16); ASPARTATE AMINO TRANSFERASE 79 U/L (10-37); BILIRUBIN,TOTAL 0.5 MG/DL (0.1-1.0); BLOOD UREA NITROGEN 18 MG/DL (7-18); BUN/CREATININE RATIO 17.5 (5.4-32.0); CALCIUM 8.7 MG/DL (8.5-10.1); CHLORIDE 92 MMOL/L (99-107); CREATININE 1.03 MG/DL (0.60-1.10); POTASSIUM 4.3 MMOL/L (3.5-5.1); SODIUM 128 MMOL/L (135-145); TOTAL CARBON DIOXIDE 24.5 MMOL/L (24-32); TOTAL PROTEIN 7.2 G/DL (6.4-8.2); eGFR 76 ML/MIN
[2021-05-20 16:47] LABS: GLUCOSE 644 MG/DL (70-104)
[2021-05-20] MEDS ORDERED: DOXY100C76 PO (18:52)
[2021-05-20] MEDS ORDERED: CEPH250T PO (18:52)
== END 2021-05-20 20:10 | disposition left against medical advice (07) ==
LOC: ER 15:35
DX: L03.114 Cellulitis of left upper limb (principal); E10.65 Type 1 diabetes mellitus with hyperglycemia; E87.1 Hypo-osmolality and hyponatremia; I10 Essential (primary) hypertension; Z86.14 Personal history of Methicillin resistant Staphylococcus aureus infection; Z86.19 Personal history of other infectious and parasitic diseases; Z72.89 Other problems related to lifestyle; Z56.0 Unemployment, unspecified; Z91.018 Allergy to other foods; Z79.2 Long term (current) use of antibiotics; Z79.899 Other long term (current) drug therapy
CPT/HCPCS: 36415; 80053; 83605; 84145; 85025; 85651; 86140; 87040; 99283; Q9967

== ENCOUNTER 2021-07-28 15:19 | Emergency (ER) | payer MEDICAID ==
[~2021-07-28] VITALS: Ht 175.3 cm; Wt 57.3 kg
[2021-07-28 15:22] VITALS: BP 126/79
[2021-07-28 16:55] LABS: BASOPHILS # (AUTO) 0.1 X10'3 (0-0.2); EOSINOPHILS # (AUTO) 0.1 X10'3 (0-0.9); EOSINOPHILS % (AUTO) 1.2 % (0-6); HEMATOCRIT 37.2 % (42.0-52.0); HEMOGLOBIN 12.8 g/dl (14.0-17.9); LYMPHOCYTES # (AUTO) 1.3 X10'3 (1.1-4.8); LYMPHOCYTES % (AUTO) 18.1 % (21-51); MEAN CORPUSCULAR HEMOGLOBIN 30.7 PG (27.0-31.0); MEAN CORPUSCULAR HGB CONC 34.4 g/dL (33.0-36.5); MEAN CORPUSCULAR VOLUME 89.2 FL (78-98); MEAN PLATELET VOLUME 8.4 FL (7.4-10.4); MONOCYTES # (AUTO) 0.6 X10'3 (0-0.9); MONOCYTES % (AUTO) 8.1 % (2-12); NEUTROPHILS % (AUTO) 71.6 % (42-75); PLATELET COUNT 243 X10'3 (140-440); RED BLOOD COUNT 4.18 X10'6 (4.70-6.10); RED CELL DISTRIBUTION WIDTH 12.5 % (11.5-14.5)
[2021-07-28 17:24] LABS: ALANINE AMINOTRANSFERASE 106 U/L (12-78); ALBUMIN 2.9 G/DL (3.4-5.0); ALBUMIN/GLOBULIN RATIO 0.7 (1.1-1.5); ALKALINE PHOSPHATASE 140 IU/L (46-116); ANION GAP 6 (8-16); ASPARTATE AMINO TRANSFERASE 64 U/L (10-37); BILIRUBIN,TOTAL 0.3 MG/DL (0.1-1.0); BLOOD UREA NITROGEN 18 MG/DL (7-18); BUN/CREATININE RATIO 16.5 (5.4-32.0); CALCIUM 8.3 MG/DL (8.5-10.1); CHLORIDE 95 MMOL/L (99-107); CREATININE 1.09 MG/DL (0.60-1.10); POTASSIUM 4.2 MMOL/L (3.5-5.1); SODIUM 127 MMOL/L (135-145); TOTAL CARBON DIOXIDE 25.9 MMOL/L (24-32); eGFR 71 ML/MIN
[2021-07-28 17:25] LABS: GLUCOSE 678 MG/DL (70-104)
[2021-07-28] MEDS ORDERED: normal saline 1000ML IV soln IVB ONE (17:30)
[2021-07-28] MEDS ORDERED: insulin NPH/REG insulin (NovoLIN 70/30) 10ml vial SQ STA (17:43)
[2021-07-28] MEDS ORDERED: acetaminophen 325mg tablet PO ONE (17:45)
[2021-07-28] MEDS ORDERED: SULF1TAB49 PO (17:49)
[2021-07-28] MEDS ORDERED: insulin regular, human 10 units/0.1 ml syringe SQ ONE (17:55)
== END 2021-07-28 18:05 | disposition home or self-care (01) ==
LOC: ER 15:20
DX: L03.011 Cellulitis of right finger (principal); I10 Essential (primary) hypertension; E11.9 Type 2 diabetes mellitus without complications; Z86.19 Personal history of other infectious and parasitic diseases; Z86.14 Personal history of Methicillin resistant Staphylococcus aureus infection; Z72.89 Other problems related to lifestyle; Z56.0 Unemployment, unspecified; Z88.8 Allergy status to other drugs, medicaments and biological substances; Z79.2 Long term (current) use of antibiotics; Z79.899 Other long term (current) drug therapy
CPT/HCPCS: 36415; 80053; 85025; 96372; 99284; J1815

== ENCOUNTER 2021-07-30 21:13 | Emergency (ER) | payer MEDICAID ==
[~2021-07-30] VITALS: Ht 175.3 cm; Wt 54.5 kg
[~2021-07-30 21:13] MED LIST changes: +SULF1TAB49 PO
[2021-07-30 21:39] VITALS: BP 131/82
--- NOTE | 2021-07-30 22:35 | NUR ---
JONNY at bedside.
--- NOTE | 2021-07-30 22:41 | NUR ---
PT STATES DESIRES TO LEAVE AND DOES NOT WISH TO HAVE C-COLLAR OR BG CHECKED. NOTIFIED DR GALVAN WHO EVALUATED PT AND FOUND HIM TO BE STABLE FOR DISCHARGE LONG HE USES HIS HOME INSULIN. PT VERBALIZED UNDERSTANDING
== END 2021-07-30 22:50 | disposition home or self-care (01) ==
LOC: ER 21:14
DX: S40.212A Abrasion of left shoulder, initial encounter (principal); I10 Essential (primary) hypertension; E11.9 Type 2 diabetes mellitus without complications; Z86.14 Personal history of Methicillin resistant Staphylococcus aureus infection; W22.8XXA Striking against or struck by other objects, initial encounter; Y93.89 Activity, other specified; Y92.89 Other specified places as the place of occurrence of the external cause; Y99.8 Other external cause status; Z56.0 Unemployment, unspecified
CPT/HCPCS: 99283

== ENCOUNTER 2022-02-01 08:07 | Emergency (ER) | payer MEDICAID ==
[~2022-02-01] VITALS: Ht 175.3 cm; Wt 61.4 kg
[~2022-02-01 08:07] MED LIST changes: -SULF1TAB49 PO
[2022-02-01 09:01] LABS: ALANINE AMINOTRANSFERASE 58 U/L (12-78); ALBUMIN 3.7 G/DL (3.4-5.0); ALBUMIN/GLOBULIN RATIO 0.8 (1.1-1.5); ALKALINE PHOSPHATASE 119 IU/L (46-116); ANION GAP 7 (8-16); ASPARTATE AMINO TRANSFERASE 33 U/L (10-37); BILIRUBIN,TOTAL 0.4 MG/DL (0.1-1.0); BLOOD UREA NITROGEN 15 MG/DL (7-18); BUN/CREATININE RATIO 15.6 (5.4-32.0); CALCIUM 9.7 MG/DL (8.5-10.1); CHLORIDE 99 MMOL/L (99-107); CREATININE 0.96 MG/DL (0.60-1.10); GLUCOSE 386 MG/DL (70-104); POTASSIUM 3.9 MMOL/L (3.5-5.1); SODIUM 134 MMOL/L (135-145); TOTAL CARBON DIOXIDE 27.7 MMOL/L (24-32); TOTAL PROTEIN 8.4 G/DL (6.4-8.2); eGFR 82 ML/MIN
[2022-02-01 09:02] LABS: BASOPHILS # (AUTO) 0.2 X10'3 (0-0.2); BASOPHILS % (AUTO) 1.7 % (0-1); EOSINOPHILS # (AUTO) 0.2 X10'3 (0-0.9); EOSINOPHILS % (AUTO) 1.8 % (0-6); HEMATOCRIT 44.3 % (42.0-52.0); HEMOGLOBIN 15.5 g/dl (14.0-17.9); LYMPHOCYTES # (AUTO) 2.7 X10'3 (1.1-4.8); LYMPHOCYTES % (AUTO) 28.2 % (21-51); MEAN CORPUSCULAR HEMOGLOBIN 30.7 PG (27.0-31.0); MEAN CORPUSCULAR VOLUME 87.5 FL (78-98); MEAN PLATELET VOLUME 8.9 FL (7.4-10.4); MONOCYTES # (AUTO) 0.7 X10'3 (0-0.9); MONOCYTES % (AUTO) 7.4 % (2-12); NEUTROPHILS # (AUTO) 5.9 X10'3 (1.8-7.7); NEUTROPHILS % (AUTO) 60.9 % (42-75); PLATELET COUNT 270 X10'3 (140-440); RED BLOOD COUNT 5.07 X10'6 (4.70-6.10); RED CELL DISTRIBUTION WIDTH 12.6 % (11.5-14.5); WHITE BLOOD COUNT 9.7 X10'3 (4.5-11.0)
[2022-02-01] MEDS ORDERED: LIDOcaine Viscous 15ml cup MM PRN (10:30)
[2022-02-01] MEDS ORDERED: mag hydrox/Alum hydrox/simeth 30ml oral suspension PO ONE (10:30)
[2022-02-01] MEDS ORDERED: pantoprazole 40mg Tablet.DR PO SCH (10:34)
--- NOTE | 2022-02-01 11:03 | NUR ---
Patient reports improvement of his burning epigastric/chest pain after administration of GI cocktail.
[2022-02-01] MEDS ORDERED: normal saline 1000ml 1,000 ML IV ONE (11:20)
[2022-02-01 12:31] VITALS: BP 158/106
== END 2022-02-01 12:33 | disposition home or self-care (01) ==
LOC: ER 08:07
DX: R10.13 Epigastric pain (principal); I10 Essential (primary) hypertension; E11.9 Type 2 diabetes mellitus without complications; Z91.018 Allergy to other foods; Z56.0 Unemployment, unspecified
CPT/HCPCS: 36415; 71045; 80053; 83880; 84484; 85025; 93005; 99285; J7030

== ENCOUNTER 2022-02-27 08:50 | Emergency (ER) | payer MEDICAID ==
[~2022-02-27] VITALS: Ht 175.3 cm; Wt 54.5 kg
[2022-02-27] MEDS ORDERED: morphine 4 MG/ML inj SYRINge IV ONE (09:30)
[2022-02-27 10:02] LABS: BASOPHILS % (AUTO) 0.9 % (0-1); EOSINOPHILS # (AUTO) 0.2 X10'3 (0-0.9); EOSINOPHILS % (AUTO) 3.3 % (0-6); HEMATOCRIT 45.7 % (42.0-52.0); HEMOGLOBIN 15.9 g/dl (14.0-17.9); LYMPHOCYTES # (AUTO) 1.4 X10'3 (1.1-4.8); LYMPHOCYTES % (AUTO) 28.5 % (21-51); MEAN CORPUSCULAR HEMOGLOBIN 31.1 PG (27.0-31.0); MEAN CORPUSCULAR HGB CONC 34.9 g/dL (33.0-36.5); MEAN CORPUSCULAR VOLUME 89.1 FL (78-98); MEAN PLATELET VOLUME 9.5 FL (7.4-10.4); MONOCYTES # (AUTO) 0.5 X10'3 (0-0.9); MONOCYTES % (AUTO) 9.4 % (2-12); NEUTROPHILS # (AUTO) 2.9 X10'3 (1.8-7.7); NEUTROPHILS % (AUTO) 57.9 % (42-75); PLATELET COUNT 154 X10'3 (140-440); RED BLOOD COUNT 5.13 X10'6 (4.70-6.10); RED CELL DISTRIBUTION WIDTH 12.3 % (11.5-14.5)
[2022-02-27 10:17] LABS: ALANINE AMINOTRANSFERASE 82 U/L (12-78); ALBUMIN 3.8 G/DL (3.4-5.0); ALBUMIN/GLOBULIN RATIO 0.8 (1.1-1.5); ALKALINE PHOSPHATASE 123 IU/L (46-116); ANION GAP 8 (8-16); ASPARTATE AMINO TRANSFERASE 47 U/L (10-37); BILIRUBIN,TOTAL 0.5 MG/DL (0.1-1.0); BLOOD UREA NITROGEN 22 MG/DL (7-18); BUN/CREATININE RATIO 18.5 (5.4-32.0); CALCIUM 9.5 MG/DL (8.5-10.1); CHLORIDE 90 MMOL/L (99-107); CREATININE 1.19 MG/DL (0.60-1.10); POTASSIUM 5.3 MMOL/L (3.5-5.1); SODIUM 125 MMOL/L (135-145); TOTAL CARBON DIOXIDE 26.7 MMOL/L (24-32); TOTAL PROTEIN 8.3 G/DL (6.4-8.2); eGFR 64 ML/MIN
[2022-02-27] MEDS ORDERED: iohexol 300mg/ml 100ml inj. ONE (10:34)
[2022-02-27] MEDS ORDERED: MESSAGE TO NURSING PO NR (10:42)
[2022-02-27 10:47] LABS: CLARITY,URINE CLEAR (Clear); COLOR,URINE STRAW (Yellow); GLUCOSE, URINE >=1000 mg/dl (Neg); KETONES,URINE NEGATIVE (Neg); LEUKOCYTE ESTERASE ,URINE NEGATIVE (Neg); NITRITES, URINE NEGATIVE (Neg); OCCULT BLOOD,URINE NEGATIVE (Neg); PROTEIN,URINE NEGATIVE (Neg); UROBILINOGEN,URINE 0.2 E.U/dL (0.2-1.0)
[2022-02-27 10:49] LABS: UA COLLECTION TYPE CLN CATCH MIDSTREAM
[2022-02-27 10:54] LABS: GLUCOSE 698 MG/DL (70-104)
[2022-02-27] MEDS ORDERED: ringers solution, lacted 1,000 ML IV ONE (11:45)
[2022-02-27 11:51] LABS: RBC,URINE NONE SEEN /HPF (0-2); WBC,URINE NONE SEEN /HPF (0-4)
[2022-02-27 11:52] LABS: BACTERIA,URINE NONE SEEN /HPF (Neg); SQUAMOUS EPITHELIAL CELL,UR FEW /LPF (FEW)
[2022-02-27] MEDS ORDERED: LEVO-65 PO (12:13)
[2022-02-27] MEDS ORDERED: insulin regular, human 10 units/0.1 ml syringe SQ ONE (12:30)
[2022-02-27] MEDS ORDERED: insulin regular, human 10 units/0.1 ml syringe IV ONE (12:30)
--- NOTE | 2022-02-27 14:06 | NUR ---
ASKED DR MEJÍA IF DR WANTED ANY REPEAT LABS. PER DR MEJÍA NO NEED FOR REPEAT LABS.
[2022-02-27 14:07] VITALS: BP 128/88
== END 2022-02-27 14:02 | disposition home or self-care (01) ==
LOC: ER 08:50
DX: N45.1 Epididymitis (principal); K40.90 Unilateral inguinal hernia, without obstruction or gangrene, not specified as recurrent; N50.812 Left testicular pain; K59.00 Constipation, unspecified; I10 Essential (primary) hypertension; E11.9 Type 2 diabetes mellitus without complications; Z86.19 Personal history of other infectious and parasitic diseases; Z86.14 Personal history of Methicillin resistant Staphylococcus aureus infection; Z98.890 Other specified postprocedural states; Z72.89 Other problems related to lifestyle; Z56.0 Unemployment, unspecified; Z88.8 Allergy status to other drugs, medicaments and biological substances; Z79.2 Long term (current) use of antibiotics; Z79.899 Other long term (current) drug therapy
CPT/HCPCS: 36415; 74177; 80053; 81001; 82948; 83605; 85025; 93976; 96361; 96372; 96374; 96375; 99285; J1815; J2270; J3490; J7120; Q9967; 76870

== ENCOUNTER 2022-03-03 13:21 | Emergency (ER) | payer MEDICAID ==
[~2022-03-03] VITALS: Ht 171.4 cm; Wt 54.5 kg
[~2022-03-03 13:21] MED LIST changes: +LEVO-65 PO
[2022-03-03 13:29] VITALS: BP 146/95
== END 2022-03-03 16:25 | disposition left against medical advice (07) ==
LOC: ER 13:22
DX: N50.811 Right testicular pain (principal); N50.812 Left testicular pain; Z53.21 Procedure and treatment not carried out due to patient leaving prior to being seen by health care provider

== ENCOUNTER 2022-03-06 15:01 | Emergency (ER) | payer MEDICAID ==
[~2022-03-06] VITALS: Ht 175.3 cm; Wt 53.6 kg
[2022-03-06 16:08] LABS: BASOPHILS # (AUTO) 0.1 X10'3 (0-0.2); BASOPHILS % (AUTO) 0.6 % (0-1); EOSINOPHILS # (AUTO) 0.1 X10'3 (0-0.9); EOSINOPHILS % (AUTO) 0.6 % (0-6); HEMATOCRIT 46.5 % (42.0-52.0); HEMOGLOBIN 15.9 g/dl (14.0-17.9); LYMPHOCYTES # (AUTO) 2.4 X10'3 (1.1-4.8); LYMPHOCYTES % (AUTO) 13.3 % (21-51); MEAN CORPUSCULAR HEMOGLOBIN 30.8 PG (27.0-31.0); MEAN CORPUSCULAR HGB CONC 34.1 g/dL (33.0-36.5); MEAN CORPUSCULAR VOLUME 90.3 FL (78-98); MEAN PLATELET VOLUME 9.5 FL (7.4-10.4); MONOCYTES # (AUTO) 1.3 X10'3 (0-0.9); MONOCYTES % (AUTO) 7.3 % (2-12); NEUTROPHILS # (AUTO) 14.4 X10'3 (1.8-7.7); NEUTROPHILS % (AUTO) 78.2 % (42-75); PLATELET COUNT 238 X10'3 (140-440); RED BLOOD COUNT 5.15 X10'6 (4.70-6.10); RED CELL DISTRIBUTION WIDTH 12.5 % (11.5-14.5); WHITE BLOOD COUNT 18.4 X10'3 (4.5-11.0)
[2022-03-06 16:28] LABS: ALANINE AMINOTRANSFERASE 75 U/L (12-78); ALBUMIN 3.4 G/DL (3.4-5.0); ALBUMIN/GLOBULIN RATIO 0.7 (1.1-1.5); ALKALINE PHOSPHATASE 116 IU/L (46-116); ANION GAP 9 (8-16); ASPARTATE AMINO TRANSFERASE 33 U/L (10-37); BLOOD UREA NITROGEN 16 MG/DL (7-18); BUN/CREATININE RATIO 11.5 (5.4-32.0); CHLORIDE 89 MMOL/L (99-107); CREATININE 1.39 MG/DL (0.60-1.10); LIPASE 54 U/L (73-393); SODIUM 125 MMOL/L (135-145); TOTAL CARBON DIOXIDE 26.7 MMOL/L (24-32); TOTAL PROTEIN 8.2 G/DL (6.4-8.2); eGFR 53 ML/MIN
[2022-03-06 16:42] LABS: GLUCOSE 722 MG/DL (70-104)
[2022-03-06] MEDS ORDERED: insulin regular, human U-100 3ml vial - multi-dose IV ONE (17:10)
[2022-03-06] MEDS ORDERED: Insulin Reg/NS 100units/100mL 100 ML IV PRN (17:10)
[2022-03-06] MEDS ORDERED: normal saline 1000ML IV soln IVB ONE ×3 (17:10→22:15)
[2022-03-06 18:57] LABS: CLARITY,URINE CLEAR (Clear); COLOR,URINE STRAW (Yellow); GLUCOSE, URINE >=1000 mg/dl (Neg); KETONES,URINE NEGATIVE (Neg); LEUKOCYTE ESTERASE ,URINE NEGATIVE (Neg); NITRITES, URINE NEGATIVE (Neg); OCCULT BLOOD,URINE SMALL (Neg); PROTEIN,URINE NEGATIVE (Neg); UROBILINOGEN,URINE 0.2 E.U/dL (0.2-1.0)
[2022-03-06 19:03] LABS: UA COLLECTION TYPE URINAL
[2022-03-06 19:04] LABS: BACTERIA,URINE NONE SEEN /HPF (Neg); SQUAMOUS EPITHELIAL CELL,UR FEW /LPF (FEW); WBC,URINE 0-4 /HPF (0-4)
[2022-03-06] MEDS ORDERED: INSU100V43 SUBCUT (22:04)
[2022-03-06] MEDS ORDERED: INSU100V56 SUBCUT (22:04)
[2022-03-06] MEDS ORDERED: insulin regular, human 10 units/0.1 ml syringe IV ONE (22:10)
[2022-03-06] MEDS ORDERED: normal saline 1000ml 1,000 ML IV ONE (22:10)
[2022-03-06] MEDS ORDERED: insulin regular, human 10 units/0.1 ml syringe SQ ONE (22:10)
[2022-03-06 23:05] VITALS: BP 126/78
== END 2022-03-06 23:06 | disposition home or self-care (01) ==
LOC: ER 15:01
DX: E11.65 Type 2 diabetes mellitus with hyperglycemia (principal); I10 Essential (primary) hypertension; E11.9 Type 2 diabetes mellitus without complications; Z86.14 Personal history of Methicillin resistant Staphylococcus aureus infection; Z56.0 Unemployment, unspecified; Z59.00 Homelessness unspecified; Z88.8 Allergy status to other drugs, medicaments and biological substances; Z91.018 Allergy to other foods
CPT/HCPCS: 36415; 80053; 81001; 82948; 83690; 85025; 96361; 96374; 96376; 99284; J1815; J7030

== ENCOUNTER 2022-04-03 23:58 | Emergency (ER) | payer MEDICAID ==
[~2022-04-03] VITALS: Ht 177.8 cm; Wt 50.0 kg
[~2022-04-03 23:58] MED LIST changes: +INSU100V43 SUBCUT; +INSU100V56 SUBCUT; -LEVO-65 PO
[2022-04-04] MEDS ORDERED: LORazepam 2 mg/ml vial IV ONE (00:15)
[2022-04-04] MEDS ORDERED: methylPREDNISolone sod succ 125mg/2ml vial IV ONE (00:15)
[2022-04-04] MEDS ORDERED: clindamycin 600mg/D5W 50ml 50 ML IV ONE (00:20)
[2022-04-04] MEDS ORDERED: iohexol 300mg/ml 100ml inj. ONE ×2 (00:21→00:22)
[2022-04-04] MEDS ORDERED: iohexol 350MG/ML 100ml bottle IV ONE (00:23)
[2022-04-04] MEDS ORDERED: iohexol 350 MG/ML 50ML vial IV ONE (00:23)
[2022-04-04 01:31] LABS: BASOPHILS # (AUTO) 0.1 X10'3 (0-0.2); BASOPHILS % (AUTO) 0.6 % (0-1); EOSINOPHILS # (AUTO) 0.2 X10'3 (0-0.9); EOSINOPHILS % (AUTO) 1.5 % (0-6); HEMATOCRIT 37.6 % (42.0-52.0); HEMOGLOBIN 13.1 g/dl (14.0-17.9); LYMPHOCYTES # (AUTO) 2.9 X10'3 (1.1-4.8); LYMPHOCYTES % (AUTO) 24.7 % (21-51); MEAN CORPUSCULAR HEMOGLOBIN 30.9 PG (27.0-31.0); MEAN CORPUSCULAR HGB CONC 34.9 g/dL (33.0-36.5); MEAN CORPUSCULAR VOLUME 88.4 FL (78-98); MEAN PLATELET VOLUME 8.8 FL (7.4-10.4); MONOCYTES # (AUTO) 0.8 X10'3 (0-0.9); MONOCYTES % (AUTO) 7.1 % (2-12); NEUTROPHILS # (AUTO) 7.8 X10'3 (1.8-7.7); NEUTROPHILS % (AUTO) 66.1 % (42-75); PLATELET COUNT 184 X10'3 (140-440); RED BLOOD COUNT 4.26 X10'6 (4.70-6.10); RED CELL DISTRIBUTION WIDTH 12.6 % (11.5-14.5); WHITE BLOOD COUNT 11.8 X10'3 (4.5-11.0)
[2022-04-04 01:51] LABS: ALANINE AMINOTRANSFERASE 56 U/L (12-78); ALBUMIN 3.1 G/DL (3.4-5.0); ALBUMIN/GLOBULIN RATIO 0.7 (1.1-1.5); ALKALINE PHOSPHATASE 101 IU/L (46-116); ANION GAP 11 (8-16); ASPARTATE AMINO TRANSFERASE 27 U/L (10-37); BILIRUBIN,TOTAL 0.3 MG/DL (0.1-1.0); BLOOD UREA NITROGEN 14 MG/DL (7-18); BUN/CREATININE RATIO 15.9 (5.4-32.0); CALCIUM 8.2 MG/DL (8.5-10.1); CHLORIDE 97 MMOL/L (99-107); CREATININE 0.88 MG/DL (0.60-1.10); GLUCOSE 351 MG/DL (70-104); POTASSIUM 3.2 MMOL/L (3.5-5.1); SODIUM 133 MMOL/L (135-145); TOTAL CARBON DIOXIDE 24.8 MMOL/L (24-32); TOTAL PROTEIN 7.3 G/DL (6.4-8.2); eGFR 90 ML/MIN
[2022-04-04] MEDS ORDERED: insulin regular, human 10 units/0.1 ml syringe IV ONE (02:05)
[2022-04-04 02:23] VITALS: BP 125/93
[2022-04-04] MEDS ORDERED: normal saline 1000ml 1,000 ML IV ONE (02:35)
--- NOTE | 2022-04-04 02:35 | NUR ---
I agree with Stone Lujan assessment.
--- NOTE | 2022-04-04 02:35 | NUR ---
He was upset about something. He ripped out his IV and leaked blood down the corridor. He was stopped by the registration desk and didn't even want us to put guaze on it. But he eventually did. He is in socks. Doesn't want slippers. His is here. We have no idea what happened. He said "You guys can all kiss my ass and fuck the holidays." We just have no idea. He wouldn't tell me what happened, if anything.
--- NOTE | 2022-04-04 02:47 | NUR ---
PT LEFT THE ER BEFORE A COMPLETE GENERAL ASSESSMENT WAS COMPLETED.
== END 2022-04-04 03:05 | disposition left against medical advice (07) ==
LOC: ER 23:58
DX: R06.02 Shortness of breath (principal); I10 Essential (primary) hypertension; E11.9 Type 2 diabetes mellitus without complications; R51.9 Headache, unspecified; F17.200 Nicotine dependence, unspecified, uncomplicated; Z86.14 Personal history of Methicillin resistant Staphylococcus aureus infection; Z72.89 Other problems related to lifestyle; Z59.00 Homelessness unspecified; Z56.0 Unemployment, unspecified; Z79.899 Other long term (current) drug therapy; Z91.018 Allergy to other foods
CPT/HCPCS: 36415; 70487; 70491; 71045; 71275; 80053; 83605; 83880; 84145; 84484; 85025; 85610; 87040; 96365; 96375; 99285; J1815; J2060; J2930; J3490; Q9967

== ENCOUNTER 2022-06-04 21:48 | Emergency (ER) | payer MEDICAID ==
[~2022-06-04] VITALS: Ht 172.7 cm; Wt 55.0 kg
[2022-06-05] MEDS ORDERED: loperamide 2mg capsule PO ONE (03:15)
[2022-06-05] MEDS ORDERED: normal saline 1000ML IV soln IVB ONE ×2 (03:15→04:50)
[2022-06-05 03:54] LABS: BASOPHILS # (AUTO) 0.2 X10'3 (0-0.2); BASOPHILS % (AUTO) 1.5 % (0-1); EOSINOPHILS % (AUTO) 0.4 % (0-6); HEMATOCRIT 51.9 % (42.0-52.0); HEMOGLOBIN 17.6 g/dl (14.0-17.9); LYMPHOCYTES # (AUTO) 1.6 X10'3 (1.1-4.8); LYMPHOCYTES % (AUTO) 15.9 % (21-51); MEAN CORPUSCULAR HEMOGLOBIN 30.5 PG (27.0-31.0); MEAN CORPUSCULAR HGB CONC 33.9 g/dL (33.0-36.5); MEAN CORPUSCULAR VOLUME 89.9 FL (78-98); MEAN PLATELET VOLUME 8.6 FL (7.4-10.4); MONOCYTES # (AUTO) 0.4 X10'3 (0-0.9); MONOCYTES % (AUTO) 3.7 % (2-12); NEUTROPHILS % (AUTO) 78.5 % (42-75); PLATELET COUNT 250 X10'3 (140-440); RED BLOOD COUNT 5.77 X10'6 (4.70-6.10); RED CELL DISTRIBUTION WIDTH 12.9 % (11.5-14.5); WHITE BLOOD COUNT 10.2 X10'3 (4.5-11.0)
[2022-06-05 04:01] LABS: ALANINE AMINOTRANSFERASE 140 U/L (12-78); ALBUMIN 3.9 G/DL (3.4-5.0); ALBUMIN/GLOBULIN RATIO 0.7 (1.1-1.5); ALKALINE PHOSPHATASE 126 IU/L (46-116); ANION GAP 11 (8-16); ASPARTATE AMINO TRANSFERASE 89 U/L (10-37); BILIRUBIN,TOTAL 0.6 MG/DL (0.1-1.0); BLOOD UREA NITROGEN 24 MG/DL (7-18); BUN/CREATININE RATIO 26.4 (5.4-32.0); CALCIUM 9.6 MG/DL (8.5-10.1); CHLORIDE 97 MMOL/L (99-107); CREATININE 0.91 MG/DL (0.60-1.10); GLUCOSE 367 MG/DL (70-104); SODIUM 130 MMOL/L (135-145); TOTAL CARBON DIOXIDE 21.7 MMOL/L (24-32); TOTAL PROTEIN 9.3 G/DL (6.4-8.2); eGFR 87 ML/MIN
[2022-06-05 04:03] LABS: POTASSIUM 3.9 MMOL/L (3.5-5.1)
[2022-06-05] MEDS ORDERED: ringers solution, lacted 1,000 ML IV ONE (04:45)
[2022-06-05] MEDS ORDERED: ondansetron/PF 4mg/2ml inj IV ONE (06:45)
[2022-06-05] MEDS ORDERED: morphine 4 MG/ML inj SYRINge IV ONE (06:45)
[2022-06-05 08:28] VITALS: BP 116/81
[2022-06-05] MEDS ORDERED: LOPE2CAP PO (09:53)
[2022-06-05] MEDS ORDERED: bacitracin 15gm ointment TP ONE (10:00)
[2022-06-05 10:08] LABS: OCCULT BLOOD STOOL NEGATIVE (Neg)
--- NOTE | 2022-06-05 10:22 | NUR ---
Wound dressing applied per provider order. Antibiotic ointment applied to patient.
--- NOTE | 2022-06-05 10:30 | NUR ---
IV removed without incident, canula intact. No complaints of pain. Patient given clothes prior to discharge. After care instructions reviewed with patient and patients , no questions or concerns at tie of discharge.
--- NOTE | 2022-06-05 10:32 | NUR ---
Discharge note: Patient alert and oriented x4, in no acute distress, ambulatory and stable. Patient goevn printed Rx to take to prefered pharmacy. Patient to follow up with PCP. Patient to return to ED if symptoms persist or worsen. After care instructions reviewed with patient and patients , no questions or concerns at time of discharge.
[2022-06-05 11:14] LABS: C DIFF SPECIMEN=DIARRHEA? ACCEPTABLE; C DIFFICILE TOXINS A&B NEGATIVE (Neg)
== END 2022-06-05 10:33 | disposition home or self-care (01) ==
LOC: ER 21:49
DX: R19.7 Diarrhea, unspecified (principal); R10.9 Unspecified abdominal pain; I10 Essential (primary) hypertension; E11.9 Type 2 diabetes mellitus without complications; Z79.899 Other long term (current) drug therapy; Z79.1 Long term (current) use of non-steroidal anti-inflammatories (NSAID)
CPT/HCPCS: 36415; 80053; 82272; 85025; 87045; 87046; 87324; 87449; 93005; 96361; 96374; 96375; 99285; J2270; J2405; J7030; J7120

== ENCOUNTER 2022-06-06 10:59 | Emergency (ER) | payer MEDICAID ==
[~2022-06-06] VITALS: Ht 172.7 cm; Wt 56.0 kg
[~2022-06-06 10:59] MED LIST changes: +LOPE2CAP PO
[2022-06-06 11:22] VITALS: BP 127/46
== END 2022-06-06 16:41 | disposition left against medical advice (07) ==
LOC: ER 11:00
DX: R19.7 Diarrhea, unspecified (principal); Z53.21 Procedure and treatment not carried out due to patient leaving prior to being seen by health care provider
CPT/HCPCS: 99281